=== PATIENT | male | born 1955 | race Caucasian/White ===

== ENCOUNTER 2016-12-09 06:21 | Day surgery (SDC) | payer OTHER ==
[2016-12-09 06:48] VITALS: RESP 18
[2016-12-09] MEDS ORDERED: MIDAZOLAM HCL 2 MG/2 ML SYR IV PRN ×3 (07:11→09:28)
[2016-12-09] MEDS ORDERED: LIDOCAINE HCL 1% 20 ML VIAL SUBCUT PRN (07:11)
[2016-12-09] MEDS ORDERED: ACETAMINOPHEN 1,000 MG/100 ML VIAL IV SCH ×3 (07:15→09:28)
[2016-12-09] MEDS ORDERED: FAMOTIDINE IN SALINE, ISO-OSM 20 MG/50 ML PIGGYBACK IV SCH (07:15)
[2016-12-09] MEDS ORDERED: BUPIVACAINE HCL/PF 0.25% 10 ML VIAL INJ ONE (07:17)
[2016-12-09] MEDS ORDERED: MIDAZOLAM HCL 2 MG/2 ML VIAL ONE (07:29)
[2016-12-09] MEDS ORDERED: SUCCINYLCHOLINE CHLORIDE 200 MG/10 ML VIAL ONE (07:37)
[2016-12-09] MEDS ORDERED: FENTANYL 100 MCG/2 ML VIAL ONE (07:37)
[2016-12-09] MEDS ORDERED: DEXAMETHASONE 10 MG/ML VIAL ONE (07:42)
[2016-12-09] MEDS ORDERED: LACTATED RINGERS 1,000 ML IV SCH ×3 (08:00→09:28)
[2016-12-09] MEDS ORDERED: MORPHINE SULFATE 10 MG/ML SYR IV PRN ×2 (08:55→09:28)
[2016-12-09] MEDS ORDERED: FENTANYL 100 MCG/2 ML VIAL IV PRN ×2 (08:55→09:28)
[2016-12-09] MEDS ORDERED: ONDANSETRON HCL 4 MG/2 ML VIAL IV PRN ×2 (08:55→09:28)
--- NOTE | 2016-12-09 09:19 | PROCEDURE NOTE: Gen Surgery ---
General Surgery Procedure Note - Date of Encounter Date of Encounter: 12/09/16 - Brief Operative Note (1) Adenopathy Date of procedure: 12/09/16 Pre-Op Diagnosis: same Post-op diagnosis: same Procedure: right cervical lymph node biopsy. Anesthesia Type: Mac Physician: VIRGINIE KNOWLES Pathology: sent X-ray taken: Yes Images viewed by surgeon: Yes Images viewed by radiologist: Yes Sponge and instrument counts: correct Condition: stable Disposition: same day Narrative: The patient was taken to the operating room. He was placed in supine position. His right neck was exposed. His right neck was prepped with a ChloraPrep solution. Timeout was called and the correct patient and procedure were verified. When 3 minutes had elapsed for the prep to dry the area was draped. The right neck node had been marked out previously. Quarter percent Marcaine without epinephrine was infiltrated. Transverse incision was sharply fashioned in the region of the right sternocleidomastoid muscle. The cautery was used to divide the platysma. The node was noted to be somewhat necrotic. It was dissected out and handed off the field as specimen. Areas of bleeding were controlled with clips or cautery. Surgicel was placed in the wound bed. The platysma was reapproximated with 3-0 Vicryl. The skin was closed running subcuticular 4-0 Monocryl. A dressing was applied. (2) Pleural effusion Date of procedure: 12/09/16 Procedure: thoracentesis X-ray taken: Yes Images viewed by surgeon: Yes Images viewed by radiologist: Yes Sponge and instrument counts: correct Condition: stable Disposition: same day Narrative: Following the lymph node biopsy the patient was positioned at the end of the bed. He was sitting up and leaning over on a Blair stand. Ultrasound was used to identify an area in the right chest for thoracentesis. This area was marked. It was prepped with a ChloraPrep solution. Quarter percent Marcaine without epinephrine was infiltrated. A Turkel catheter was then placed without difficulties. Approximately thousand mL's of a straw-colored fluid was obtained. It was sent for analysis. A single suture of 3-0 Monocryl was placed in the skin. A dressing was applied. He was then taken to the recovery room.
[2016-12-09 09:51] VITALS: O2SAT 89
--- NOTE | 2016-12-09 10:19 | RADIOLOGY REPORT ---
REASON FOR EXAMINATION: Post thoracentesis. FINDINGS: Portable AP views of the chest are compared with prior films dated . There has been no significant change. Heart and vessels appear stable. The left lung field is clear. Right suprahilar mass and opacification at the right lung base appears stable. No pneumothorax is seen. IMPRESSION: X-ray demonstrates no significant change. The findings were reviewed with Dr. Slade. DEANDRE
[2016-12-09 10:20] VITALS: BP 128/78; PULSE 97; TEMP 98.2
[2016-12-09 12:42] LABS: FLUID COLOR TUBE 1 XANTHOCHROMIC (COLORLESS)
--- NOTE | 2016-12-11 14:24 | PREOPERATIVE H&P ---
History of Present Illness (Brent Slade M.D.; 12/08/2016 9:57 AM) The patient is a 61 year old male who presents for evaluation of a lump. The lump was first noticed by the patient. The onset of the lump was sudden and has been occurring in a persistent pattern for 1 month. The course has been constant. The discomfort associated with the lump is described as moderate. The lump is described as being located in the anterior neck (right side). There are 4 lumps. The largest lump is described as being 4 centimeters in diameter. There has been associated bloating, lymphadenopathy and other (SOB and cough), while there has been no associated pain or redness. Previous diagnostic tests have included CT scan. Problem List/Past Medical (Brent Slade M.D.; 12/08/2016 9:59 AM) Negative Allergies (Brent Slade M.D.; 12/08/2016 9:59 AM) Singulair *ANTIASTHMATIC AND BRONCHODILATOR AGENTS* Enlarged Lymph Nodes, Fever Family History (Brent Slade M.D.; 12/08/2016 9:59 AM) Mother Glaucoma Social History (Brent Slade M.D.; 12/08/2016 9:59 AM) Marital status . Occupation [employer] Number of Children 2. Tobacco Use Never smoker. No drug use No marijuana Alcohol Use Does not drink alcohol. Other Problems (Brent Slade M.D.; 12/08/2016 9:59 AM) Neck mass (R22.1) Pneumonia (J18.9) RLL Review of Systems (Brent Slade M.D.; 12/08/2016 9:59 AM) General Present- Appetite Loss and Tiredness. Respiratory Present- Difficulty Breathing, Lung Problems and Shortness of Breath. Gastrointestinal Present- Bloating. Note: fills up fast Male Genitourinary Not Present- Kidney Stones. Note: nephritis Musculoskeletal Present- Backache (coughing has caused back and rib pain). Neurological Not Present- Neurological Problems. Endocrine Not Present- Diabetes and Thyroid Problems. Hematology Not Present- Anemia and Blood Clots. Physical Exam (Brent Slade M.D.; 12/08/2016 10:02 AM) General Mental Status-Alert. General Appearance-Anxious. Orientation-Oriented X3. Integumentary General Appearance-normal. Head and Neck Neck Global Assessment - palpable mass on the right. Chest and Lung Exam Auscultation Adventitious sounds - Expiratory wheeze - Right Upper Lobe (Anterior). Inspiratory wheeze - Right Upper Lobe (Anterior). Abdomen Inspection Inspection of the abdomen reveals - No Hernias, Soft and Non-tender. Lymphatic Head & Neck Anterior Cervical Nodes: Right - Size - > 3.0 cm. Consistency - Firm. Mobility - Fixed to underlying tissue. Shape - Matted nodes. Overlying skin - Normal. Tenderness - Mildly tender. Assessment & Plan (Brent Slade M.D.; 12/08/2016 10:09 AM) Pneumonia (J18.9) Story: RLL Adenopathy, cervical (R59.0) Current Plans EXCISION OF DEEP CERVICAL NODE (50016) Note:Informed consent was obtained in the office will plan to excise in the OR tomorrow. Medical Decision Making (Brent Slade M.D.; 12/08/2016 10:11 AM) Approximately a total of 30 minutes spent in discussion with more than 50% spent in counseling. Signed by Brent Slade M.D. (12/08/2016 10:11 AM) DEANDRE
[2016-12-12 03:13] LABS: AMYLASE, BODY FLUID SEE COMMENTS; LDH, BODY FLUID SEE COMMENTS
== END 2016-12-09 10:10 | disposition home or self-care (01) ==
LOC: SDS 06:21
PROVIDERS: ATTEND Surgery
DX: R59.0 Localized enlarged lymph nodes (principal); J90 Pleural effusion, not elsewhere classified
CPT/HCPCS: 71010; 740; 82042; 82150; 82945; 83615; 84157; 87070; 87075; 87102; 87116; 87205; 89051; J1100; J2250; J3010